=== PATIENT | male | born 1985 | race Caucasian/White ===

== ENCOUNTER 2018-02-26 10:59 | Emergency (ER) | payer MEDICAID ==
[~2018-02-26] VITALS: Ht 193 cm; Wt 79.5 kg
[2018-02-26 11:03] VITALS: BP 112/73
== END 2018-02-26 11:49 | disposition home or self-care (01) ==
LOC: ED 11:48
DX: K02.9 Dental caries, unspecified (principal); F17.200 Nicotine dependence, unspecified, uncomplicated
CPT/HCPCS: 99283